=== PATIENT | male | born 1945 | race Caucasian/White ===

== ENCOUNTER → 2018-01-21 | Outpatient (CLI) | payer MEDICARE, OTHER ==
[~2018-01-21] MED LIST: ALFU10TA9 PO; ATOR20TA65 PO; CELE50CA2 PO; CEP500 PO; CEPH500C24 PO; CHOL500050 PO; DEXL60CA6 PO; ESOM20CA31 PO; EXCEDRIN; LEVO750T27 PO; LOR5/325 PO; METH4TAB66 PO; ONDA8TAB98 PO; OXYC-856 PO; OXYC-870 PO; PER PO; PHENA200 PO; TAMS0.4C70 PO
[2018-01-21 11:33] LABS: PLATELET COUNT, AUTOMATED 222 K/uL (150-450)
[2018-01-21 11:47] LABS: LDL CHOLESTEROL 145 mg/dl
== END ==
LOC: LAB 10:51
PROVIDERS: ATTEND Nurse Practitioner Family
DX: R73.01 Impaired fasting glucose (principal); E78.5 Hyperlipidemia, unspecified
CPT/HCPCS: 36415; 82040; 82247; 82310; 82374; 82435; 82465; 82565; 82947; 83036; 83718; 84075; 84132; 84155; 84295; 84443; 84450; 84460; 84478; 84520; 85025

== ENCOUNTER → 2018-04-10 | Outpatient (CLI) | payer MEDICARE, OTHER | LOC: LAB 13:47 | PROVIDERS: ATTEND Nurse Practitioner | DX: L57.0 Actinic keratosis (principal) | CPT/HCPCS: 88305 ==

== ENCOUNTER 2018-09-15 14:02 | Emergency (ER) | payer MEDICARE, OTHER ==
--- NOTE | 2018-09-15 14:04 | ER Report ---
History and Physical Time Seen By MD: 14:04 HPI/ROS CHIEF COMPLAINT: Sinus pressure, cough HISTORY OF PRESENT ILLNESS: Patient is a 73-year-old male here with complaints of sinus pressure, postnasal drainage, cough. Patient reports that the symptoms started within the past 24-48 hours with a sick contact at home with his . Patient reportedly is having an elbow surgery on his right elbow at [facility] in 1 week time and was concerned that he may be getting ill which may delay his surgery prompting evaluation today. Patient is afebrile, hemodynamically stable and in no acute distress. He does have significant pressure in the frontal maxillary sinuses with no visual disturbances, diplopia, dysphasia, difficulty swallowing. REVIEW OF SYSTEMS: Constitutional: No fever, no chills. Eyes: No discharge. ENT: Frontal and maxillary sinus pressure with postnasal drainage, no erythema the posterior oropharynx or exudates. Cardiovascular: No chest pain, no palpitations. Respiratory: + cough, no shortness of breath. Gastrointestinal: No abdominal pain, no vomiting. Genitourinary: No hematuria. Musculoskeletal: No back pain. Skin: No rashes. Neurological: No headache. Allergies: Coded Allergies: ampicillin (Verified Allergy, Mild, 12/05/14) Home Meds Active Scripts Doxycycline Hyclate (DOXYCYCLINE HYCLATE) 100 Mg Tablet, 100 MG PO BID for 7 Days, #14 TAB Prov:NADIRA DOMÍNGUEZ DO 09/15/18 Dexlansoprazole (DEXILANT) 60 Mg Cap., 1 CAP PO QDAY, #90 CAP 0 Refills Prov:SOUTH LARSON APRN [employer] [employer]TER-C 01/06/18 Hx Smoking: No Smoking Status: Never Smoker, Former Smoker Hx Substance Use Disorder: No Hx Alcohol Use: No Constitutional Vital Sign - Last 24 Hours 09/15/18 14:06 Temp 97.9 Pulse 67 Resp 17 B/P (MAP) 133/83 Pulse Ox 96 O2 Delivery Room Air Physical Exam General Appearance: The patient is alert, has no immediate need for airway protection and no signs of toxicity. No acute distress Eyes: Pupils equal and round no pallor or injection. ENT, Mouth: Mucous membranes are moist, + frontal and maxillary sinus pressure bilaterally Respiratory: There are no retractions, lungs are clear to auscultation. Cardiovascular: Regular rate and rhythm. Gastrointestinal: Abdomen is soft and non tender, no masses, bowel sounds normal. Neurological: No focal neurological deficits, cranial nerves intact Skin: Warm and dry, no rashes. Musculoskeletal: Neck is supple non tender. Extremities are nontender, nonswollen and have full range of motion. DIFFERENTIAL DIAGNOSIS: After history and physical exam differential diagnosis was considered for sinusitis, pneumonia, viral syndrome Medical Decision Making EKG/Imaging Imaging PATIENT NAME: Israel Sage : 1945 MR: [id number] V: [id number] EXAM DATE: ORDERING PHYSICIAN: NADIRA DOMÍNGUEZ TECHNOLOGIST: Location: [facility] - [place] Patient: Israel Sage : 1945 Visit/Account:[id number] Date of Sevice: 09/15/2018 INDICATION: cough. Cough DATE: 09/15/2018 2:42 PM. TECHNIQUE: CHEST PA LAT COMPARISON: Chest radiograph August 05, 2015 FINDINGS: Heart size is normal. No effusion, consolidation, or pneumothorax. Mild hyperinflation. IMPRESSION: No focal pneumonia. ED Course/Re-evaluation ED Course Patient is a 73-year-old male here with complaints of bilateral frontal and maxillary sinus pressure, nasal drainage, intermittent cough. Chest x-ray showed no acute findings of consolidation, effusion. Patient was hemodynamically stable, afebrile throughout course. Patient was concerned that he has an upcoming surgery and wanted to make sure that he would be treated and that would not delay surgery. Patient was given a 70 course of doxycycline to cross cover for sinus infection and pulmonary etiology of a typical. Patient was advised to follow-up with his PCP and surgeon to keep them in the loop. Return precautions provided. Decision to Disposition Date: September 15, 2018 Decision to Disposition Time: 15:04 Depart Departure Latest Vital Signs Vital Signs Date Time Temp Pulse Resp B/P (MAP) Pulse Ox O2 Delivery O2 Flow Rate FiO2 09/15/18 14:06 97.9 67 17 133/83 96 Room Air Impression: Primary Impression: Sinusitis Additional Impression: Cough Condition: Improved Disposition: HOME OR SELF-CARE Referrals: SOUTH LARSON APRN [facility]MENT C[facility]TER-C (PCP) New Scripts Doxycycline Hyclate (DOXYCYCLINE HYCLATE) 100 Mg Tablet 100 MG PO BID for 7 Days, #14 TAB Prov: NADIRA DOMÍNGUEZ DO 09/15/18 Patient Instructions: Sinusitis (ED) Additional Instructions: Please take one tablet of doxycycline twice daily for 7 days for treatment of your suspected sinus infection. Your chest x-ray showed no signs of consolidation or fluid on the lungs. Please follow-up with your primary care doctor and your surgeon in order to make them aware. Please return promptly with worsening symptoms, visual changes, worsening headache, difficulty breathing or swallowing. Problem Qualifiers NADIRA DOMÍNGUEZ DO September 15, 2018 14:04
[2018-09-15 14:06] VITALS: BP 133/83
--- NOTE | 2018-09-15 14:47 | RADIOLOGY IMAGING REPORT ---
FACILITY: [facility] PATIENT NAME: Israel Sage : 1945 MR: [id number] V: [id number] EXAM DATE: ORDERING PHYSICIAN: NADIRA DOMÍNGUEZ TECHNOLOGIST: [place] [facility] [place] Sage : 1945 Visit/Account:[id number] Date of Sevice: 09/15/2018 INDICATION: cough. Cough DATE: 09/15/2018 2:42 PM. TECHNIQUE: CHEST PA LAT COMPARISON: Chest radiograph August 05, 2015 FINDINGS: Heart size is normal. No effusion, consolidation, or pneumothorax. Mild hyperinflation. IMPRESSION: No focal pneumonia. Report Dictated By: Arpan Hastings MD at 09/15/2018 2:42 PM Report E-Signed By: Arpan Hastings MD at 09/15/2018 2:42 PM WSN:[id number]
[2018-09-15] MEDS ORDERED: DOXY-179 PO (15:08)
== END 2018-09-15 15:15 | disposition home or self-care (01) ==
LOC: ER 14:16
DX: J32.8 Other chronic sinusitis (principal)
CPT/HCPCS: 71046; 99283

== ENCOUNTER → 2018-12-02 | Outpatient (CLI) | payer MEDICARE, OTHER ==
[~2018-12-02] MED LIST changes: +DOXY-179 PO
--- NOTE | 2018-12-02 13:40 | RADIOLOGY IMAGING REPORT ---
FACILITY: [facility] - [place], [place] PATIENT NAME: Israel Sage : 1945 MR: [id number] V: [id number] EXAM DATE: ORDERING PHYSICIAN: [facility] TECHNOLOGIST: Location: [facility] - [place] Patient: Israel Sage : 1945 Visit/Account:[id number] Date of Sevice: 12/02/2018 ELBOW 2 VIEW RIGHT HISTORY: Patient had surgery September 23. Unable straighten arm completely. Unable to twist forearm. COMPARISON: 03/17/2008. TECHNIQUE: AP, oblique, and lateral views of the right elbow. 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 There is a space between the medial side of the arthro plasty and the medial (ulnar) side of the distal humerus that measures 8 mm inferiorly. There is unch anged resection of the head of the radius. There are punctate foreign bodies in the distal upper arm as well as a surgical clip/staple. There are bone fragments anterior and posterior to the joint space . IMPRESSION: 1. There is a space between the ulnar side of the humeral arthroplasty and the medial humeral metaphy sis, concerning for loosening. Report Dictated By: Mable Trevino at 12/02/2018 1:07 PM Report E-Signed By: Mable Trevino at 12/02/2018 1:32 PM WSN:[id number]
== END ==
LOC: RAD 09:40
PROVIDERS: ATTEND Physician Assistant
DX: Z96.621 Presence of right artificial elbow joint (principal)